=== PATIENT | female | born 1955 | race Hispanic/Latino ===

== ENCOUNTER 2017-12-27 21:56 | Emergency (ER) | payer BC ==
[2017-12-27] MEDS ORDERED: Dexamethasone 4 mg/ml Vial ONE (22:31)
== END 2017-12-27 22:36 | disposition home or self-care (01) ==
LOC: ERS 21:56
DX: J30.2 Other seasonal allergic rhinitis (principal); E78.5 Hyperlipidemia, unspecified; I10 Essential (primary) hypertension
CPT/HCPCS: 99283; J1100

== ENCOUNTER 2018-09-24 07:41 | Outpatient (CLI) | payer BC | END 2018-09-24 07:42 | disposition home or self-care (01) | LOC: BICMAMMO 07:41 | PROVIDERS: ATTEND Family Medicine | DX: Z12.31 Encounter for screening mammogram for malignant neoplasm of breast (principal); Z80.3 Family history of malignant neoplasm of breast | CPT/HCPCS: 77063; 77067 ==

== ENCOUNTER 2020-10-30 08:16 | Outpatient (CLI) | payer BC ==
--- NOTE | 2020-10-30 09:01 | MMO ---
Bilateral MAMMO Bilat Screen [facility]. CLINICAL HISTORY: Patient is 65 years old and is seen for screening. The patient has no family history of breast cancer. The patient has no personal history of cancer. VIEWS: The views performed were: bilateral craniocaudal with tomosynthesis and bilateral mediolateral oblique with tomosynthesis. FILMS COMPARED: The present examination has been compared to a prior imaging study performed at [facility] on 09/24/2018. This study has been interpreted with the assistance of computer-aided detection. MAMMOGRAM FINDINGS: There are scattered fibroglandular densities. There are no suspicious masses, suspicious calcifications, or new areas of architectural distortion. IMPRESSION: THERE IS NO MAMMOGRAPHIC EVIDENCE OF MALIGNANCY. A ROUTINE FOLLOW-UP MAMMOGRAM IN 1 YEAR IS RECOMMENDED. THE RESULTS OF THIS EXAM WERE SENT TO THE PATIENT. ACR BI-RADS Category 1 - Negative MAMMOGRAPHY NOTE: 1. A negative mammogram report should not delay a biopsy if a dominant of clinically suspicious mass is present. 2. Approximately 10% to 15% of breast cancers are not detected by mammography. 3. Adenosis and dense breasts may obscure an underlying neoplasm. Reported by: KENNY RAMIREZ MD Electonically Signed: [id number]
== END 2020-10-30 08:17 | disposition home or self-care (01) ==
LOC: BICMAMMO 08:16
PROVIDERS: ATTEND Family Medicine
DX: Z12.31 Encounter for screening mammogram for malignant neoplasm of breast (principal)
CPT/HCPCS: 77063; 77067

== ENCOUNTER 2022-02-10 17:38 | Inpatient (IN) | payer BC, MEDICARE, SELFPAY ==
[2022-02-10] MEDS ORDERED: Aspirin Chewable 81 MG TAB ONE (18:05)
[2022-02-10] MEDS ORDERED: Lidocaine Viscous Sol 2% 15 ml UD Cup ONE (18:05)
[2022-02-10] MEDS ORDERED: Mag-Al 1200 mg/1200 mg/30 ML UDCUP ONE (18:05)
[2022-02-10 18:10] LABS: #Basophils 0.1 thou/uL (0.0-0.2); #Eosinphils 0.1 thou/uL (0.0-0.7); #Lymphocytes 2.4 thou/uL (1.20-3.40); #Monocytes 0.7 thou/uL (0.11-0.59); %Basophils 0.9 % (0.0-1.0); %Eosinophils 1.1 % (0.0-10.0); %Lymphocytes 25.6 % (21.0-51.0); %Monocytes 7.8 % (0.0-10.0); %Neutrophils 64.6 % (42.0-75.0); Hemoglobin 14.3 g/dL (12.0-16.0); Mean Corpuscular HGB CONC 33.1 g/dL (32.0-36.0); Mean Corpuscular Volume 90.5 fL (78.0-98.0); Platelet Count 349 thou/uL (130-400); RBC Distribution Width 12.4 % (11.5-14.5); Red Blood Cell (RBC) Count 4.78 mill/uL (4.20-5.40); White Blood Cell (WBC) Count 9.3 thou/uL (4.8-10.8)
[2022-02-10 19:18] LABS: Albumin 3.8 g/dL (3.4-4.8)
[2022-02-10 19:19] LABS: Chloride 99 mmol/L (98-107); Potassium 3.8 mmol/L (3.5-5.1); Sodium 134 mmol/L (136-145)
[2022-02-10 19:20] LABS: Calcium 9.3 mg/dL (7.8-10.44)
[2022-02-10 19:21] LABS: Globulin 3.9 g/dL (2.4-3.5); Glucose 169 mg/dL (80-115); Protein, Total 7.7 g/dL (5.8-8.1)
[2022-02-10 19:22] LABS: Anion Gap 12 mmol/L (10-20); Carbon Dioxide 27 mmol/L (23-31)
[2022-02-10 19:23] LABS: Bilirubin, Total 1.8 mg/dL (0.2-1.2)
[2022-02-10 19:24] LABS: Alkaline Phosphatase 360 U/L (40-110); Calc. Creatinine Clearance 0 mL/min (70-130)
[2022-02-10 19:25] LABS: BUN (Urea Nitrogen) 14 mg/dL (9.8-20.1)
[2022-02-10 19:26] LABS: AST (SGOT) 302 U/L (5-34)
[2022-02-10 19:27] LABS: ALT (SGPT) 459 U/L (8-55)
[2022-02-10] MEDS ORDERED: Ondansetron PF 4 MG/2 ML Vial IVP PRN ×2 (23:35→23:45)
[2022-02-10] MEDS ORDERED: hydrALAZINE 20 MG/ML VIAL SLOW IVP PRN (23:36)
[2022-02-10] MEDS ORDERED: Acetaminophen 500 MG TAB PO PRN (23:43)
[2022-02-10] MEDS ORDERED: Ondansetron ODT 4 MG TAB SL PRN (23:45)
[2022-02-11 00:05] VITALS: BMI 34.0
[2022-02-11] MEDS ORDERED: Morphine 4 MG/ML VIAL SLOW IVP PRN (00:33)
[2022-02-11] MEDS: Sodium Chloride 0.9% 1,000 ML IV SCH ×7 (02:49→21:55)
[2022-02-11 06:35] LABS: #Eosinphils 0.1 thou/uL (0.0-0.7); #Lymphocytes 2.1 thou/uL (1.20-3.40); #Monocytes 0.5 thou/uL (0.11-0.59); #Neutrophils 5.2 thou/uL (1.40-6.50); %Basophils 0.3 % (0.0-1.0); %Eosinophils 0.7 % (0.0-10.0); %Lymphocytes 26.7 % (21.0-51.0); %Monocytes 5.7 % (0.0-10.0); %Neutrophils 66.6 % (42.0-75.0); Hemoglobin 13.1 g/dL (12.0-16.0); Mean Corpuscular Hemoglobin 29.9 pg (27.0-31.0); Mean Corpuscular Volume 90.5 fL (78.0-98.0); Mean Platelet Volume 6.9 fL (7.4-10.4); Platelet Count 339 thou/uL (130-400); RBC Distribution Width 12.3 % (11.5-14.5); Red Blood Cell (RBC) Count 4.37 mill/uL (4.20-5.40); White Blood Cell (WBC) Count 7.8 thou/uL (4.8-10.8)
[2022-02-11 06:54] LABS: ALT (SGPT) 581 U/L (8-55); AST (SGOT) 458 U/L (5-34); Albumin 3.7 g/dL (3.4-4.8); Alkaline Phosphatase 380 U/L (40-110); Anion Gap 13 mmol/L (10-20); BUN (Urea Nitrogen) 10 mg/dL (9.8-20.1); Bilirubin, Total 2.9 mg/dL (0.2-1.2); Calc. Creatinine Clearance 105 mL/min (70-130); Calcium 9.1 mg/dL (7.8-10.44); Carbon Dioxide 23 mmol/L (23-31); Chloride 105 mmol/L (98-107); Globulin 3.8 g/dL (2.4-3.5); Glucose 132 mg/dL (80-115); Protein, Total 7.5 g/dL (5.8-8.1); Sodium 137 mmol/L (136-145)
[2022-02-11] MEDS: Enoxaparin Sodium 40 MG/0.4 ML SYRINGE SC SCH (08:36)
[2022-02-11] MEDS: Pantoprazole 40 MG VIAL IVP SCH (08:36)
[2022-02-11 14:00] LABS: Hemoglobin 12.7 g/dL (12.0-16.0)
[2022-02-11 14:24] LABS: ALT (SGPT) 549 U/L (8-55); AST (SGOT) 384 U/L (5-34); Albumin 3.5 g/dL (3.4-4.8); Alkaline Phosphatase 386 U/L (40-110); Anion Gap 10 mmol/L (10-20); BUN (Urea Nitrogen) 8 mg/dL (9.8-20.1); Bilirubin, Total 2.6 mg/dL (0.2-1.2); Calc. Creatinine Clearance 107 mL/min (70-130); Calcium 8.7 mg/dL (7.8-10.44); Carbon Dioxide 25 mmol/L (23-31); Chloride 107 mmol/L (98-107); Globulin 3.6 g/dL (2.4-3.5); Glucose 118 mg/dL (80-115); Lipase 811 U/L (8-78); Potassium 3.7 mmol/L (3.5-5.1); Protein, Total 7.1 g/dL (5.8-8.1); Sodium 138 mmol/L (136-145)
[2022-02-12] MEDS: Sodium Chloride 0.9% 1,000 ML IV SCH ×5 (04:34→17:44)
[2022-02-12 06:36] LABS: #Eosinphils 0.1 thou/uL (0.0-0.7); #Lymphocytes 2.2 thou/uL (1.20-3.40); #Monocytes 0.5 thou/uL (0.11-0.59); #Neutrophils 6.6 thou/uL (1.40-6.50); %Basophils 0.4 % (0.0-1.0); %Eosinophils 0.8 % (0.0-10.0); %Monocytes 5.4 % (0.0-10.0); %Neutrophils 70.4 % (42.0-75.0); Hemoglobin 11.9 g/dL (12.0-16.0); Mean Corpuscular Hemoglobin 29.4 pg (27.0-31.0); Mean Platelet Volume 6.7 fL (7.4-10.4); Platelet Count 298 thou/uL (130-400); RBC Distribution Width 12.5 % (11.5-14.5); Red Blood Cell (RBC) Count 4.03 mill/uL (4.20-5.40); White Blood Cell (WBC) Count 9.4 thou/uL (4.8-10.8)
[2022-02-12 06:57] LABS: ALT (SGPT) 392 U/L (8-55); AST (SGOT) 181 U/L (5-34); Albumin 3.3 g/dL (3.4-4.8); Alkaline Phosphatase 330 U/L (40-110); Anion Gap 11 mmol/L (10-20); BUN (Urea Nitrogen) 7 mg/dL (9.8-20.1); Bilirubin, Total 1.4 mg/dL (0.2-1.2); Calc. Creatinine Clearance 107 mL/min (70-130); Calcium 8.2 mg/dL (7.8-10.44); Carbon Dioxide 23 mmol/L (23-31); Chloride 106 mmol/L (98-107); Globulin 3.3 g/dL (2.4-3.5); Glucose 90 mg/dL (80-115); Lipase 113 U/L (8-78); Potassium 3.6 mmol/L (3.5-5.1); Protein, Total 6.6 g/dL (5.8-8.1); Sodium 136 mmol/L (136-145)
[2022-02-12] MEDS: Enoxaparin Sodium 40 MG/0.4 ML SYRINGE SC SCH (08:46)
[2022-02-12] MEDS: Pantoprazole 40 MG VIAL IVP SCH (08:46)
[2022-02-12 12:15] LABS: SARS-CoV-2 PCR by NAA Not Detected (NotDetected)
[2022-02-13] MEDS: Sodium Chloride 0.9% 1,000 ML IV SCH (03:10)
[2022-02-13 06:11] LABS: #Basophils 0.2 thou/uL (0.0-0.2); #Eosinphils 0.1 thou/uL (0.0-0.7); #Lymphocytes 2.2 thou/uL (1.20-3.40); #Monocytes 0.6 thou/uL (0.11-0.59); #Neutrophils 5.4 thou/uL (1.40-6.50); %Basophils 1.8 % (0.0-1.0); %Lymphocytes 26.3 % (21.0-51.0); %Monocytes 6.9 % (0.0-10.0); %Neutrophils 63.9 % (42.0-75.0); Hemoglobin 11.4 g/dL (12.0-16.0); Mean Corpuscular HGB CONC 32.5 g/dL (32.0-36.0); Mean Corpuscular Hemoglobin 29.4 pg (27.0-31.0); Mean Corpuscular Volume 90.6 fL (78.0-98.0); Mean Platelet Volume 6.4 fL (7.4-10.4); Platelet Count 284 thou/uL (130-400); RBC Distribution Width 12.3 % (11.5-14.5); Red Blood Cell (RBC) Count 3.89 mill/uL (4.20-5.40); White Blood Cell (WBC) Count 8.5 thou/uL (4.8-10.8)
[2022-02-13 06:41] LABS: ALT (SGPT) 272 U/L (8-55); AST (SGOT) 85 U/L (5-34); Albumin 3.1 g/dL (3.4-4.8); Alkaline Phosphatase 257 U/L (40-110); Anion Gap 12 mmol/L (10-20); BUN (Urea Nitrogen) 7 mg/dL (9.8-20.1); Bilirubin, Total 1.1 mg/dL (0.2-1.2); Calc. Creatinine Clearance 117 mL/min (70-130); Calcium 8.3 mg/dL (7.8-10.44); Carbon Dioxide 22 mmol/L (23-31); Chloride 106 mmol/L (98-107); Globulin 3.3 g/dL (2.4-3.5); Glucose 74 mg/dL (80-115); Lipase 85 U/L (8-78); Potassium 3.3 mmol/L (3.5-5.1); Protein, Total 6.4 g/dL (5.8-8.1); Sodium 137 mmol/L (136-145)
[2022-02-13] MEDS: Pantoprazole 40 MG VIAL IVP SCH (08:31)
[2022-02-13] MEDS: Enoxaparin Sodium 40 MG/0.4 ML SYRINGE SC SCH (08:31)
[2022-02-13 11:13] VITALS: BP 138/75; TEMP 98.2
== END 2022-02-13 11:59 | disposition home or self-care (01) | DRG 440 ==
LOC: ERS 17:38 → T4-B 22:37
PROVIDERS: ADMIT Internal Medicine; ATTEND Family Medicine
DX: K85.10 Biliary acute pancreatitis without necrosis or infection (principal); Z66 Do not resuscitate; Z20.822 Contact with and (suspected) exposure to COVID-19; K80.50 Calculus of bile duct without cholangitis or cholecystitis without obstruction; E78.5 Hyperlipidemia, unspecified; I10 Essential (primary) hypertension; H91.93 Unspecified hearing loss, bilateral; R74.8 Abnormal levels of other serum enzymes; R74.01 Elevation of levels of liver transaminase levels; Z90.49 Acquired absence of other specified parts of digestive tract; Z98.51 Tubal ligation status; Z90.89 Acquired absence of other organs; Z88.0 Allergy status to penicillin; Z79.899 Other long term (current) drug therapy; Z82.49 Family history of ischemic heart disease and other diseases of the circulatory system
CPT/HCPCS: 36415; 71045; 74181; 76705; 80053; 83690; 84478; 84484; 85025; 93005; 94760; C9113; J1650; J2270; J7050; U0003; U0005

== ENCOUNTER 2023-09-17 08:41 | Outpatient (CLI) | payer MEDICARE | END 2023-09-17 08:42 | disposition home or self-care (01) | LOC: BICMAMMO 08:41 | PROVIDERS: ATTEND Family Medicine | DX: Z12.31 Encounter for screening mammogram for malignant neoplasm of breast (principal); Z80.3 Family history of malignant neoplasm of breast | CPT/HCPCS: 77063; 77067 ==